=== PATIENT | female | born 1990 | race Caucasian/White ===

== ENCOUNTER 2022-04-26 18:09 | Emergency (ER) | payer OTHER ==
[~2022-04-26] VITALS: Ht 162.6 cm; Wt 65.8 kg
[~2022-04-26 18:09] MED LIST: IBUP-51; TYL2T
--- NOTE | 2022-04-26 18:30 | NUR ---
CAME IN FOR SACRAL PAIN, FELL BACKWARDS LANDING ON HER TAILBONE 2 DAYS AGO WHILE HELPING HER PARTNER. TO ER BED 10, HOOKED TO MONITOR, CHANGED TO HOSP GOWN, WARM BLANKET PROVIDED. AWAITING MD LOPEZ
--- NOTE | 2022-04-26 18:35 | NUR ---
ROBINSON BRASWELL AT BEDSIDE
--- NOTE | 2022-04-26 19:07 | NUR ---
LEASING PROPERTY MANAGER AT BEDSIDE
--- NOTE | 2022-04-26 19:40 | NUR ---
RECIEVED REPORT FROM DEVIN SULLIVAN FOR [facility]
--- NOTE | 2022-04-26 19:40 | NUR ---
PT IS RESTING COMFORTABLY IN BED. ALERT AND ORIENTED , RR EVEN AND NONLABORED. DENIES PAIN AT THIS TIME. CONNECTED TO MONITOR. VSS. WILL CONTINUE TO MONITOR.
[2022-04-26] MEDS ORDERED: IBUP-1955 PO (19:53)
[2022-04-26 19:59] VITALS: BP 130/81
--- NOTE | 2022-04-26 19:59 | NUR ---
Patient discharged to home in stable condition. Written and verbal after care instructions given. Patient verbalizes understanding of instruction.
== END 2022-04-26 20:00 | disposition home or self-care (01) ==
LOC: ER 18:09
DX: S33.8XXA Sprain of other parts of lumbar spine and pelvis, initial encounter (principal); Z60.2 Problems related to living alone; Z79.1 Long term (current) use of non-steroidal anti-inflammatories (NSAID); W18.30XA Fall on same level, unspecified, initial encounter; Y93.89 Activity, other specified; Y92.89 Other specified places as the place of occurrence of the external cause; Y99.8 Other external cause status
CPT/HCPCS: 72220-TC